=== PATIENT | female | born 1955 | race African-American/Black ===

== ENCOUNTER 2017-05-02 11:01 | Day surgery (SDC) | payer OTHER ==
[~2017-05-02] VITALS: Ht 157.5 cm; Wt 55.8 kg
[~2017-05-02 11:01] MED LIST: AMLO2.5T45 PO; CETI-101 PO; CYCL10TA7 PO; FLUT16SP15 BOTHNSTRLS; HYDR-4001 PO; MENT118G TP; NAPR-1176 PO
[2017-05-02 12:50] LABS: CLARITY URINE CLEAR (CLEAR); COLOR URINE YELLOW (YELLOW); KETONES URINE NEGATIVE (NEGATIVE); LEUKOCYTE ESTERASE URINE NEGATIVE (NEGATIVE); NITRITE URINE NEGATIVE (NEGATIVE); OCCULT BLOOD URINE NEGATIVE (NEGATIVE); PH URINE 6.5 (4.5-8.0); PROTEIN URINE NEGATIVE (NEGATIVE); SPECIFIC GRAVITY URINE 1.013 (1.005-1.030); UROBILINOGEN URINE 0.2 E.U./dL (0.2-1.0)
[2017-05-02 12:54] LABS: UCG SCREEN NEGATIVE
[2017-05-02] MEDS ORDERED: LACTATED RINGERS 1,000 ML IV SCH (13:00)
[2017-05-02 13:04] LABS: BASOPHILS % 1.3 % (0.0-2.0); HEMATOCRIT. 41.7 % (36.0-48.0); HEMOGLOBIN. 14.1 g/dL (12.0-16.0); LYMPHOCYTES % 40.7 % (20.0-50.0); MEAN CORPUSCULAR HEMOGLOBIN 31.2 pg (28.0-32.0); MEAN CORPUSCULAR VOLUME 92.2 fL (81.0-99.0); MEAN PLATELET VOLUME 11.4 fl (7.4-10.4); MONOCYTES % 10.7 % (2.0-8.0); NEUTROPHILS % 43.3 % (40.0-76.0); PLATELET 68 x1000/uL (130-400); RED BLOOD CELL COUNT 4.52 mill/uL (4.2-5.4); RED CELL DISTRIBUTION WIDTH 13.2 % (11.6-14.6)
[2017-05-02 13:13] LABS: INR 1.2; PARTIAL THROMBOPLASTIN TIME 26.6 sec (23.4-31.0); PROTHROMBIN TIME 12.6 sec (9.4-11.6)
[2017-05-02 13:27] LABS: CARBON DIOXIDE 34 mEq/L (21-32)
[2017-05-02 14:42] LABS: CHLORIDE 107 mEq/L (98-107)
[2017-05-02] MEDS ORDERED: FENTANYL CITRATE/PF 50MCG/ML 2ML VIAL ONE (15:19)
[2017-05-02] MEDS ORDERED: MIDAZOLAM HCL 2 MG/2 ML VIAL ONE (15:19)
[2017-05-02] MEDS ORDERED: ONDANSETRON HCL 4MG/2ML VIAL IV PRN (15:30)
[2017-05-02] MEDS ORDERED: MEPERIDINE HCL/PF 25MG/ML CPJ IV PRN (15:30)
[2017-05-02] MEDS ORDERED: HYDROMORPHONE HCL/PF 2MG/ML CPJ IV PRN (15:30)
[2017-05-02] MEDS ORDERED: LABETALOL 5MG/ML SYR 20 MG/4 ML SYRINGE IV PRN (15:30)
[2017-05-02] MEDS ORDERED: HYDROCODONE/ACETAMINOPHEN 5/325MG TABLET PO PRN (16:15)
[2017-05-02] MEDS ORDERED: CEFAZOLIN SODIUM 1000MG/VIAL ONE (16:49)
[2017-05-02] MEDS ORDERED: SODIUM CHLORIDE 0.9% 10ML VIAL ONE (16:49)
[2017-05-02] MEDS ORDERED: PROPOFOL 200MG/20ML VIAL IV ONE (16:49)
[2017-05-02] MEDS ORDERED: LIDOCAINE HCL/PF 1% 10 MG/ML 5ML VIAL ONE (16:49)
[2017-05-02] MEDS ORDERED: ONDANSETRON HCL 4MG/2ML VIAL ONE (16:49)
[2017-05-02] MEDS ORDERED: DEXAMETHASONE 4MG/ML 1ML VIAL ONE (16:49)
== END 2017-05-02 18:30 | disposition home or self-care (01) ==
LOC: OR 11:01
PROVIDERS: ATTEND Obstetrics & Gynecology Obstetrics
DX: D25.0 Submucous leiomyoma of uterus (principal); I10 Essential (primary) hypertension; Z86.79 Personal history of other diseases of the circulatory system; Z79.899 Other long term (current) drug therapy; Z98.890 Other specified postprocedural states
CPT/HCPCS: 36415; 58558; 80048; 81003; 81025; 85025; 85610; 85730; 88305; 93005; A4216; J0690; J1100; J2250; J2405; J3010; J3490; J7120; J2704